=== PATIENT | male | born 1950 | race Caucasian/White ===

== ENCOUNTER 2020-09-18 00:01 | Observation (INO) | payer OTHER ==
[2020-09-18] VITALS (10 sets, daily range): BP systolic 102–139; BP diastolic 46–75
[~2020-09-18] VITALS: Ht 165.1 cm; Wt 88.2 kg
[~2020-09-18 00:01] MED LIST: MOTRIN800 MG PO; TRAMADOL HCL50 MG PO
[2020-09-18 00:24] LABS: BASO # 0.1 10*3/uL (0.0-0.1); BASO % 0.3 % (0.0-1.0); EOS # 0.1 10*3/uL (0.0-0.4); EOS % 0.7 % (1.0-4.0); HEMATOCRIT 37.8 % (42.0-52.0); LYMPH # 1.4 10*3/uL (1.3-4.4); MEAN CELL VOLUME 76.4 fl (80.0-94.0); MEAN CORPUSCULAR HGB 24.8 pg (27.0-31.0); MEAN CORPUSCULAR HGB CONC 32.5 g/dl (33.0-37.0); MONO # 1.1 10*3/uL (0.1-1.0); MONO % 6.6 % (3.0-9.0); NEUT # 14.5 10*3/uL (2.3-7.9); NEUT % 84.1 % (47.0-73.0); PLATELET COUNT AUTOMATED 332 10*3/uL (130-400); RED BLOOD COUNT 4.95 10*6/uL (4.50-5.90); RED CELL DISTRI WIDTH 21.3 % (0-14.5); WHITE BLOOD COUNT 17.2 10*3/uL (4.8-10.8)
[2020-09-18 00:39] LABS: ALKALINE PHOSPHATASE 124 U/L (45-117); BUN 19 mg/dl (7-24); CHLORIDE 102 mmol/L (98-107); CREATININE 1.08 mg/dL (0.70-1.30); POTASSIUM 3.6 mmol/L (3.5-5.1); SGOT/AST 15 IU/L (3-35); SGPT/ALT 39 U/L (12-78); SODIUM 141 mmol/L (136-145); TOTAL PROTEIN 8.4 gm/dL (6.4-8.2)
[2020-09-18] MEDS ORDERED: AMITRIPTYLINE H10 M1 PO (01:11)
[2020-09-18] MEDS ORDERED: ASPIRIN ADULT L81 M2 PO (01:12)
[2020-09-18] MEDS ORDERED: BUMETANIDE1 MG PO (01:12)
[2020-09-18] MEDS ORDERED: ATORVASTATIN CA40 M1 PO (01:12)
[2020-09-18] MEDS ORDERED: HYDROXYZINE HCL25 MG PO (01:13)
[2020-09-18] MEDS ORDERED: LISINOPRIL10 M1 PO (01:15)
[2020-09-18] MEDS ORDERED: VITAMIN D31250 MCG PO (01:16)
[2020-09-18] MEDS ORDERED: DERMAPHOR OINT106 GM T (01:21)
[2020-09-18] MEDS ORDERED: OXYBUTYNIN5 MG PO (01:22)
[2020-09-18] MEDS ORDERED: CITALOPRAM HYDR10 MG PO (01:22)
[2020-09-18] MEDS ORDERED: VITAMIN C WIT1000 M1 PO (01:23)
[2020-09-18] MEDS ORDERED: 8 HOUR650 MG PO (01:23)
--- NOTE | 2020-09-18 02:15 | NUR ---
PROVIDED UPDATE TO [facility] STAFF AT THIS TIME.
--- NOTE | 2020-09-18 02:26 | NUR ---
PROVIDED PATIENTS NIECE WITH UPDATE AT THIS TIME. INFORMED HER THAT PATIENT WOULD BE IN ER FOR THE NIGHT AND HOPEFULLY GET A BED ON THE FLOOR TOMORROW. SHE DENIES ANY QUESTIONS OR CONCERNS AT THIS TIME.
--- NOTE | 2020-09-18 02:43 | NUR ---
PATIENT SITTING UP IN BED RESTING AT THIS TIME. PATIENT AWARE OF ADMISSION. PATIENT DENIES ANY NEEDS. RESPIRATIONS EASY, NON-LABORED ON 2L VIA NC. CALL LIGHT WITHIN REACH. SIDERAILS X2. RN WILL CONTINUE TO MONITOR.
[2020-09-18 05:49] LABS: ALBUMIN 3.8 gm/dl (3.1-4.5); BUN 19 mg/dl (7-24); CHOLESTEROL 149 mg/dL (<200); CREATININE 0.96 mg/dL (0.70-1.30); SGOT/AST 13 IU/L (3-35); SGPT/ALT 39 U/L (12-78); TRIGLYCERIDES 151 mg/dl (<150); VLDL CHOLESTEROL 30 mg/dL (6-40)
[2020-09-18 06:10] LABS: ALKALINE PHOSPHATASE 114 U/L (45-117); CHLORIDE 102 mmol/L (98-107); FREE T4 1.36 ng/dl (0.76-1.46); HDL CHOLESTEROL 42 mg/dl (40-60); LDL CHOLESTEROL 77 mg/dL (9-159); POTASSIUM 4.2 mmol/L (3.5-5.1); SODIUM 143 mmol/L (136-145); TOTAL PROTEIN 7.9 gm/dL (6.4-8.2)
[2020-09-18 06:47] LABS: ACT PARTIAL THROMBO TIME 27.3 SECONDS (20.0-32.1); INTERNATIONAL NORM RATIO 1.1 (2.0-3.5)
[2020-09-18 07:00] LABS: BASO % 0.3 % (0.0-1.0); EOS % 0.3 % (1.0-4.0); HEMATOCRIT 39.2 % (42.0-52.0); LYMPH # 1.1 10*3/uL (1.3-4.4); MEAN CORPUSCULAR HGB 21.4 pg (27.0-31.0); MEAN CORPUSCULAR HGB CONC 30.1 g/dl (33.0-37.0); MEAN PLATELET VOLUME 10.8 fl (9.6-12.3); MONO # 0.9 10*3/uL (0.1-1.0); MONO % 6.2 % (3.0-9.0); NEUT # 12.9 10*3/uL (2.3-7.9); NEUT % 85.9 % (47.0-73.0); PLATELET COUNT AUTOMATED 310 10*3/uL (130-400); RED BLOOD COUNT 5.51 10*6/uL (4.50-5.90); RED CELL DISTRI WIDTH 17.9 % (0-14.5); WHITE BLOOD COUNT 15.1 10*3/uL (4.8-10.8)
--- NOTE | 2020-09-18 07:00 | NUR ---
PT IS AWAKE AND RESTING IN BED. DENIES ANYPAIN, SOB OR N/V AT THIS TIME. PT IS PALE BUT WARM AND DRY. VS STABLE SEE LIST FOR DETAILS.
[2020-09-18 07:03] LABS: MEAN CELL VOLUME 71.1 fl (80.0-94.0)
[2020-09-18 08:14] LABS: VITAMIN D, 25-HYDROXY 97.4 ng/mL (30-100)
--- NOTE | 2020-09-18 09:00 | NUR ---
SPOKE WITH DR GRAVES, PT NPO FOR EGD TODAY.
--- NOTE | 2020-09-18 12:13 | NUR ---
PT RETURNED FROM SURGERY REPORTS RECIEVED FROM [facility].
--- NOTE | 2020-09-18 12:31 | NUR ---
PT RESTING POST-OP, DENIES ANY PAIN OR SOB. VS STABLE SEE FURTHER DETAILS.
--- NOTE | 2020-09-18 17:10 | NUR ---
Time: 1709 A 69 year old MALE admitted to 5E under services of CLAUDIO VALVERDE DO. Pt. arrived via stretcher from ER. Chief complaint: NAUSEA AND VOMITING ABDOMINAL DISTENTION. SHOBHA ORELLANA
--- NOTE | 2020-09-18 17:49 | NUR ---
Spoke with pt nurse Velma at [facility]. States that pt takes meds whole with thin liquids, walks with walker but only when having therapy otherwise pt uses wheelchair. States that pt also had flu shot this season already.
--- NOTE | 2020-09-18 19:45 | NUR ---
TOOK OVER CARE OF PT AT THIS TIME. PT SITTING UP IN BED. RESPIRATIONS UNLABORED. IV FLUIDS INFUSING INTO IV SITE. IV SITE IS PATENT, DRESSING C/D/I. NO DISTRESS NOTED. CALL LIGHT IN REACH.
[2020-09-19] VITALS: BP 126/65
--- NOTE | 2020-09-19 04:50 | NUR ---
PT SLEEPING. RESPIRAITONS EASY AND UNLABORED. NO S/S OF DISTRESS. CALL LIGHT IN REACH.
[2020-09-19 06:39] LABS: ALBUMIN 2.9 gm/dl (3.1-4.5); BUN 19 mg/dl (7-24); CHLORIDE 109 mmol/L (98-107); POTASSIUM 3.7 mmol/L (3.5-5.1); SODIUM 143 mmol/L (136-145)
[2020-09-19 06:42] LABS: ALKALINE PHOSPHATASE 93 U/L (45-117); SGOT/AST 12 IU/L (3-35); SGPT/ALT 27 U/L (12-78); TOTAL PROTEIN 6.4 gm/dL (6.4-8.2)
[2020-09-19 08:00] VITALS: BP 101/55
[2020-09-19 08:40] LABS: BASO % 0.4 % (0.0-1.0); EOS # 0.2 10*3/uL (0.0-0.4); EOS % 1.7 % (1.0-4.0); HEMATOCRIT 34.8 % (42.0-52.0); LYMPH # 1.7 10*3/uL (1.3-4.4); MEAN CORPUSCULAR HGB 21.4 pg (27.0-31.0); MEAN CORPUSCULAR HGB CONC 29.3 g/dl (33.0-37.0); MEAN PLATELET VOLUME 10.4 fl (9.6-12.3); MONO # 1.1 10*3/uL (0.1-1.0); MONO % 10.6 % (3.0-9.0); NEUT # 7.4 10*3/uL (2.3-7.9); NEUT % 70.9 % (47.0-73.0); PLATELET COUNT AUTOMATED 256 10*3/uL (130-400); RED BLOOD COUNT 4.77 10*6/uL (4.50-5.90); RED CELL DISTRI WIDTH 16.1 % (0-14.5); WHITE BLOOD COUNT 10.5 10*3/uL (4.8-10.8)
--- NOTE | 2020-09-19 09:01 | NUR ---
Routine medications given. No distress.
--- NOTE | 2020-09-19 09:19 | NUR ---
Attempted to contact family of patient with the two phone numbers listed in patients chart. Both phone numbers were incorrect and the people answering were getting very upset will all of the calls. Contacted registration and had both phone numbers removed from chart. Attempted to contact [facility] to get new phone numbers and unable to contact anyone at this time.
--- NOTE | 2020-09-19 09:23 | NUR ---
Volunteer Services Director in to talk to patient. Patient states lives at with [facility] assisted [facility]. There are N/A steps in the home. Physician: Pharmacy: [facility] Home health services: none Patient's level of ADLs: MODERATE ASSIST Patient has working utilities: yes DME: none Follow-up physician's appointment after d/c: patient will make Does patient want to access PORTAL?: no Discharge plan discusseed with patient, he stated he does not have any DME equipment, HH or oxygen at [facility] and when he is discharged he will return there. . DHARA PAN
--- NOTE | 2020-09-19 11:53 | NUR ---
Pt medicated with tylenol per prn order for complaints of abdominal pain.
[2020-09-19 12:00] VITALS: BP 105/56
--- NOTE | 2020-09-19 12:30 | NUR ---
States that medication effective.
[2020-09-19 16:00] VITALS: BP 103/49
--- NOTE | 2020-09-19 19:45 | NUR ---
TOOK OVER CARE OF PT. PT RESTING IN BED. RESPIRATIONS EASY AND UNLABORED. NO S/S OF DISTRESS. PT DENIES NAUSEA. HOB ELEVATED. SAFETY MEASURES IN PLACE. CALL LIGHT IN REACH.
[2020-09-19 20:11] VITALS: BP 100/48
--- NOTE | 2020-09-19 22:10 | NUR ---
Hep Lock discontinued to right antecubital. Site asymptomatic. Pressure applied. Sterile dressing applied. GURU CASH
--- NOTE | 2020-09-19 22:15 | NUR ---
IV started left antecubital with #22 protective cath after 0 attempts. Site prepped with Chloroprep. Sterile dressing applied. Patient tolerated procedure well. IV site is saline locked. GURU CASH
[2020-09-20] VITALS: BP 90/40
[2020-09-20 00:30] VITALS: BP 94/50
[2020-09-20 07:36] LABS: ALBUMIN 2.8 gm/dl (3.1-4.5); BUN 12 mg/dl (7-24); CHLORIDE 109 mmol/L (98-107); CREATININE 0.73 mg/dL (0.70-1.30); POTASSIUM 3.7 mmol/L (3.5-5.1); SGOT/AST 14 IU/L (3-35); SGPT/ALT 27 U/L (12-78); SODIUM 143 mmol/L (136-145)
[2020-09-20 07:37] LABS: ALKALINE PHOSPHATASE 84 U/L (45-117); TOTAL PROTEIN 6.3 gm/dL (6.4-8.2)
[2020-09-20 08:00] VITALS: BP 117/58
[2020-09-20 08:20] LABS: BASO # 0.1 10*3/uL (0.0-0.1); BASO % 0.7 % (0.0-1.0); EOS # 0.8 10*3/uL (0.0-0.4); EOS % 7.9 % (1.0-4.0); LYMPH # 1.8 10*3/uL (1.3-4.4); LYMPH % 17.7 % (27.0-41.0); MEAN CELL VOLUME 70.2 fl (80.0-94.0); MEAN CORPUSCULAR HGB 21.1 pg (27.0-31.0); MEAN PLATELET VOLUME 10.5 fl (9.6-12.3); MONO # 0.9 10*3/uL (0.1-1.0); MONO % 9.3 % (3.0-9.0); NEUT # 6.4 10*3/uL (2.3-7.9); NEUT % 64.1 % (47.0-73.0); PLATELET COUNT AUTOMATED 232 10*3/uL (130-400); RED CELL DISTRI WIDTH 15.5 % (0-14.5)
[2020-09-20 12:00] VITALS: BP 105/48
[2020-09-20 16:00] VITALS: BP 111/64
[2020-09-20 20:00] VITALS: BP 109/52
[2020-09-21] VITALS: BP 125/77
[2020-09-21 07:09] LABS: BUN 14 mg/dl (7-24); CHLORIDE 113 mmol/L (98-107); POTASSIUM 3.8 mmol/L (3.5-5.1); SODIUM 146 mmol/L (136-145)
[2020-09-21 07:11] LABS: CREATININE 0.76 mg/dL (0.70-1.30)
[2020-09-21 07:21] LABS: BASO % 0.4 % (0.0-1.0); EOS # 0.7 10*3/uL (0.0-0.4); EOS % 7.3 % (1.0-4.0); HEMATOCRIT 32.6 % (42.0-52.0); LYMPH # 1.6 10*3/uL (1.3-4.4); LYMPH % 17.7 % (27.0-41.0); MEAN CELL VOLUME 70.1 fl (80.0-94.0); MEAN CORPUSCULAR HGB 21.1 pg (27.0-31.0); MEAN CORPUSCULAR HGB CONC 30.1 g/dl (33.0-37.0); MEAN PLATELET VOLUME 10.4 fl (9.6-12.3); MONO % 10.5 % (3.0-9.0); NEUT # 5.9 10*3/uL (2.3-7.9); NEUT % 63.8 % (47.0-73.0); PLATELET COUNT AUTOMATED 254 10*3/uL (130-400); RED BLOOD COUNT 4.65 10*6/uL (4.50-5.90); RED CELL DISTRI WIDTH 15.9 % (0-14.5); WHITE BLOOD COUNT 9.3 10*3/uL (4.8-10.8)
[2020-09-21 08:00] VITALS: BP 122/56
--- NOTE | 2020-09-21 09:02 | NUR ---
PATIENT STATES THAT HE IS HAVING CHEST PAIN AT THIS TIME AND SAID THAT IT JUST STARTED WHEN HE STARTED EATING HIS BREAKFAST. VITALS STABLE. STAT EKG ORDERED AND NOTIFIED RIZWAN CALIXTO. ORDER OBTAINED FOR TROPONIN SET.
--- NOTE | 2020-09-21 09:43 | NUR ---
Patient comes from [facility]. Updated clinicals faxed for review. Patient states he is return there when discharged.
--- NOTE | 2020-09-21 10:54 | NUR ---
PHYSICAL THERAPY Physical Therapy evaluation completed on 5E with full evaluation to follow. Recommend physical therapy per plan of care and return to [facility] with PT/OT services upon discharge. Thank you for this referral. Yaquelin Reddy,PT,DPT
--- NOTE | 2020-09-21 10:55 | NUR ---
Occupational Therapy evaluation completed on five with full evaluation to follow. Recommend occupational therapy per plan of care and return to [facility] with follow up therapy upon discharge. Thank you for this referral. Simin Keith OTR/L
[2020-09-21 12:00] VITALS: BP 112/53
[2020-09-21 16:00] VITALS: BP 101/48
[2020-09-21 20:00] VITALS: BP 105/61
[2020-09-22] VITALS: BP 113/54
--- NOTE | 2020-09-22 02:22 | NUR ---
PT ASLEEP IN BED. NO S/S OF DISTRESS NOTED. WILL MONITOR. CALL LIGHT IN REACH.
--- NOTE | 2020-09-22 07:30 | NUR ---
TOOK OVER CARE OF PT. PT RESTING IN BED. RESPIRATIONS EASY AND UNLABORED ON ROOM AIR. NO S/S OF DISTRESS. CALL LIGHT IN REACH.
--- NOTE | 2020-09-22 07:45 | NUR ---
PHYSICAL THERAPY Patient seen this am 1;1 for therapy visit and was relaxing supine in bed upon therapist arrival. Patient identified by name / and reports no c/o's of pain at this time. Patient hard to understand at times secondary to Mumbling vocabulary. Patient performed supine to sit EOB with CGA x 1, tolerating a few minutes static EOB sit to collect himself, then completed several sit to stand transfers, SBA, use of wh walker, tolerating approx 1 minute static stand, demonstrating "slouched" standing posture. Patient ambulates 10'x 2, wh walker, CGA, demonstrating slow, cautious gait pattern, with decreased stride. Patient also performed BSC transfer, CGA, demonstrating safe transfer technique with B hand placement. Patient returned to supine in bed and remained with call light, tray table, telephone, bed alarm for safety. Will continue per POC as tolerated, total treatment time 18 minutes. Kunal Yoo, FREELANCE COURT REPORTER
[2020-09-22 08:00] VITALS: BP 112/50
--- NOTE | 2020-09-22 08:00 | NUR ---
OT NOTE Pt was seen this A.M. 1:1 for 25 minute OT session. Upon arrival pt was supine in bed. Pt identified by name and and had no complaints at this time. Pt transferred supine to sit EOB with CGA. While sitting EOB requested for pt to doff and mercedes B socks and pt was unable. Pt was educated on compensatory technique of bringing leg up to knee level which pt was able to complete however still required modA to complete. Sit to stand completed from bed level with SBA and use of w/w for UE support. Challenged pt's static standing tolerance needed for increased I and enhanced endurance. Pt was able to tolerate aprox 60 seconds before sitting due to fatigue. After a seated rest break pt then completed functional mobility to the bedside commode with CGA and use of w/w for UE support. Pt transferred on to the bedside commode and off with SBA. Functional mobility completed back to the EOB with CGA and use of w/w. While sitting EOB pt completed BUE towel exercises with mod resistance over all planes for 1 X 10 to increase and restore maximum functional strength. Pt then transferred back into bed sit to supine with SBA. There he was left with call light in hand, tray table in place, and bed alarm activated for safety. Continue with rec D/C plan to return to [facility] with therapy. SIM Nielsen/Shoaib
--- NOTE | 2020-09-22 09:49 | NUR ---
Patient is stating when he is discharged he is not returning directly to [facility], he is going to his Niece's house for dex. Discussed this with patients RN and questioned how patient would be able to get his meds if he was to go to niece's house. she stated she is going to call niece and ask questions and will get back to me.
[2020-09-22] MEDS ORDERED: Carafate1 GM PO (10:53)
[2020-09-22] MEDS ORDERED: PROTONIX40 MG PO ×2 (10:53)
[2020-09-22] MEDS ORDERED: FLUONAZOLE200 MG PO (10:55)
--- NOTE | 2020-09-22 10:56 | NUR ---
Discussed plan with calvin Christensen. Patient will be going home with her until Monday. Discussed with EDWARD Maki. She is putting in discharge now.
[2020-09-22 12:00] VITALS: BP 122/58
--- NOTE | 2020-09-22 12:00 | NUR ---
REVIEWED DISCHARGE SUMMARY WITH PT DENISE ALEMAN.
--- NOTE | 2020-09-22 12:30 | NUR ---
Discharge instructions reviewed with patient/family. Patient receptive and verbalizes understanding. Follow-up care arranged. Written instructions given to patient/family. GURU CASH
--- NOTE | 2020-09-22 12:45 | NUR ---
PT ASSISTED TO DENISE CAR IN ER PARKING LOT.
--- NOTE | 2020-09-22 15:28 | NUR ---
Faxed PT/OT prescription to [facility]
--- NOTE | 2020-09-23 07:56 | NUR ---
OCCUPATIONAL THERAPY CO-SIGN I approve of the Occupational Therapy notes written above. ROLANDA HAMMER, OTR/L
--- NOTE | 2020-09-23 08:00 | NUR ---
PHYSICAL THERAPY CO-SIGN I approve of the Physical Therapy notes written above. PEYMAN TATE PT,DPT
== END 2020-09-22 14:11 | disposition home or self-care (01) ==
LOC: ED 00:01 → EDHOLD 01:55 → 5E 01:55 → EDHOLD 01:55 → 5E 15:42
PROVIDERS: Internal Medicine; Student in an Organized Health Care Education/Training Program; Surgery; ADMIT Family Medicine; ATTEND Family Medicine
DX: K20.90 Esophagitis, unspecified without bleeding (principal); E78.5 Hyperlipidemia, unspecified; I10 Essential (primary) hypertension; R10.13 Epigastric pain; H54.7 Unspecified visual loss; J96.00 Acute respiratory failure, unspecified whether with hypoxia or hypercapnia; E83.41 Hypermagnesemia; R73.9 Hyperglycemia, unspecified; D50.9 Iron deficiency anemia, unspecified; D72.829 Elevated white blood cell count, unspecified; Z98.890 Other specified postprocedural states; Z20.828 Contact with and (suspected) exposure to other viral communicable diseases

== ENCOUNTER → 2020-09-23 | Outpatient (CLI) | payer OTHER ==
[~2020-09-23] MED LIST changes: +8 HOUR650 MG PO; +AMITRIPTYLINE H10 M1 PO; +ASPIRIN ADULT L81 M2 PO; +ATORVASTATIN CA40 M1 PO; +BUMETANIDE1 MG PO; +CITALOPRAM HYDR10 MG PO; +Carafate1 GM PO; +DERMAPHOR OINT106 GM T; +FLUONAZOLE200 MG PO; +HYDROXYZINE HCL25 MG PO; +LISINOPRIL10 M1 PO; +OXYBUTYNIN5 MG PO; +PROTONIX40 MG PO; +VITAMIN C WIT1000 M1 PO; +VITAMIN D31250 MCG PO
== END | disposition home or self-care (01) ==
LOC: COVID19 14:54
PROVIDERS: ATTEND Registered Nurse
DX: Z20.828 Contact with and (suspected) exposure to other viral communicable diseases (principal)

== ENCOUNTER 2020-11-20 05:57 | Emergency (ER) | payer OTHER ==
[2020-11-20 07:36] LABS: BASO # 0.1 10*3/uL (0.0-0.1); BASO % 0.6 % (0.0-1.0); EOS # 0.5 10*3/uL (0.0-0.4); EOS % 5.2 % (1.0-4.0); HEMATOCRIT 32.7 % (42.0-52.0); LYMPH # 1.4 10*3/uL (1.3-4.4); LYMPH % 15.5 % (27.0-41.0); MEAN CELL VOLUME 78.8 fl (80.0-94.0); MEAN CORPUSCULAR HGB 26.5 pg (27.0-31.0); MEAN CORPUSCULAR HGB CONC 33.6 g/dl (33.0-37.0); MEAN PLATELET VOLUME 9.8 fl (9.6-12.3); MONO # 0.8 10*3/uL (0.1-1.0); MONO % 8.5 % (3.0-9.0); NEUT # 6.2 10*3/uL (2.3-7.9); NEUT % 69.9 % (47.0-73.0); PLATELET COUNT AUTOMATED 253 10*3/uL (130-400); RED BLOOD COUNT 4.15 10*6/uL (4.50-5.90); RED CELL DISTRI WIDTH 21.2 % (0-14.5); WHITE BLOOD COUNT 8.9 10*3/uL (4.8-10.8)
[2020-11-20 07:48] LABS: ACT PARTIAL THROMBO TIME 27.6 SECONDS (20.0-32.1); INTERNATIONAL NORM RATIO 1.1 (2.0-3.5)
[2020-11-20 07:49] LABS: BUN 18 mg/dl (7-24); CHLORIDE 104 mmol/L (98-107); CREATININE 0.93 mg/dL (0.70-1.30); POTASSIUM 4.1 mmol/L (3.5-5.1); SODIUM 139 mmol/L (136-145)
[2020-11-20] MEDS ORDERED: CEPHALEXIN500 M1 PO (09:18)
== END 2020-11-20 10:47 ==
LOC: ED 05:57
PROVIDERS: Emergency Medicine
DX: S02.19XA Other fracture of base of skull, initial encounter for closed fracture (principal); S02.2XXA Fracture of nasal bones, initial encounter for closed fracture; S02.85XA Fracture of orbit, unspecified, initial encounter for closed fracture; Z79.899 Other long term (current) drug therapy; Z98.890 Other specified postprocedural states; W06.XXXA Fall from bed, initial encounter; Y93.89 Activity, other specified; Y92.89 Other specified places as the place of occurrence of the external cause; Y99.8 Other external cause status

== ENCOUNTER → 2022-09-29 | Outpatient (CLI) | payer OTHER ==
[~2022-09-29] MED LIST changes: +CEPHALEXIN500 M1 PO
== END | disposition home or self-care (01) ==
LOC: CT 09-27 04:06
PROVIDERS: ATTEND Psychiatry & Neurology Neurology
DX: G93.89 Other specified disorders of brain (principal); G31.9 Degenerative disease of nervous system, unspecified; I67.82 Cerebral ischemia; J32.1 Chronic frontal sinusitis; Z98.890 Other specified postprocedural states

== ENCOUNTER 2022-12-05 15:27 | Emergency (ER) | payer OTHER ==
[2022-12-05] MEDS ORDERED: CLINDAMYCIN HC300 MG PO (16:26)
== END 2022-12-05 16:57 ==
LOC: ED 15:27
DX: A49.02 Methicillin resistant Staphylococcus aureus infection, unspecified site (principal); Z79.899 Other long term (current) drug therapy; Z79.82 Long term (current) use of aspirin

== ENCOUNTER 2023-02-05 09:32 | Emergency (ER) | payer OTHER ==
[~2023-02-05 09:32] MED LIST changes: +CLINDAMYCIN HC300 MG PO
== END 2023-02-05 12:59 | disposition home or self-care (01) ==
LOC: ED 09:32
DX: M25.551 Pain in right hip (principal); R42 Dizziness and giddiness; I10 Essential (primary) hypertension; Z98.890 Other specified postprocedural states; W07.XXXA Fall from chair, initial encounter; Y93.89 Activity, other specified; Y92.129 Unspecified place in nursing home as the place of occurrence of the external cause; Y99.8 Other external cause status